=== PATIENT | male | born 1955 | race Caucasian/White ===

== ENCOUNTER 2018-11-25 14:23 | Emergency (ER) | payer MEDICAID ==
--- NOTE | 2018-11-25 14:55 | EDPHY ---
H & P Stated Complaint: Fall, L eye abrasia, intoxicated - Personal History Current Tetanus/Diphtheria Vaccine: Yes Current Tetanus Diphtheria and Acellular Pertussis (TDAP): Yes - Medical/Surgical History Hx Asthma: No Hx Chronic Respiratory Disease: No Hx Diabetes: No Hx Cardiac Disease: No Hx Renal Disease: No Hx Cirrhosis: No Hx Alcoholism: Yes Hx HIV/AIDS: No Hx Splenectomy or Spleen Trauma: No Other PMH: ETOH, headaches, Hep C - Social History Smoking Status: Current every day smoker Time Seen by Provider: 11/25/18 14:35 HPI/ROS: CHIEF COMPLAINT: "I hit my head" HISTORY OF PRESENT ILLNESS: 62-year-old homeless male arrives via ambulance, not a trauma activation, after witnesses observed him drinking alcohol and fall forward impacting his head. Positive brief loss of consciousness. No seizure activity. No incontinence. Patient states that this was not a syncopal episode. He has no complaints of pain or discomfort. He is asking for food and whether he can sleep. Tetanus is up-to-date per patient. REVIEW OF SYSTEMS: 10 systems reviewed and negative with the exception of the elements mentioned in the history of present illness PAST MEDICAL/SURGICAL HISTORY: no anticoagulant use, no relevant medical/ surgical history SOCIAL HISTORY: positive for self disclose alcohol use PHYSICAL EXAM 1) GENERAL: Well-developed, well-nourished, alert and oriented. Appears to be in no acute distress. Answering questions appropriately. 2) HEAD: Normocephalic, left frontal abrasion hematoma. 3) HEENT: Pupils equal, round, reactive to light bilaterally. Negative Horners. Nasopharynx, oropharynx, clear. No deformity or angulation of nose. No septal hematoma. No rhinorrhea. No oral trauma. Ears bilaterally with normal tympanic membranes. No hemotympanum. No fluid or blood in the external auditory canal. No raccoon eyes. No Mary sign. For dentition. no gross malocclusion, TMJ bilaterally nontender, facial bones nontender including the zygomatic arch, maxilla mandible. 4) NECK: No cervical collar is on. Posterior cervical spine is nontender, no stepoff, no effusion. Full range of motion which does not elicit any midline cervical spine pain, no posterior midline tenderness, no step-off. I recommended cervical collar however patient slaps my hand away when I attempt to place this. 5) LUNGS: Clear to auscultation bilaterally, no wheezes, no rhonchi, no retractions. No obvious signs of trauma. No chest wall pain. No flaring, no grunting. Moving symmetrically. No crepitus. 6) HEART: Regular rate and rhythm, 7) ABDOMEN: No guarding, no rebound, no focal tenderness, no peritoneal signs, no signs of trauma, no ecchymosis 8) MUSCULOSKELETAL: Moving all extremities, no focal areas of tenderness, no obvious trauma. 9) BACK: No midline vertebral tenderness, no fluctuance, no step-off, no obvious trauma, no visual or palpable abnormality. 10) SKIN: No laceration. DIFFERENTIAL DIAGNOSIS: Not necessarily in any particular order, my differential diagnosis includes, but is not limited to, concussion, skull fracture, intraparenchymal contusion, subarachnoid, subdural and epidural hematoma. The patient understands that this diagnosis is provisional and can never be 100% accurate. (Natalie Beauchamp) Constitutional: Initial Vital Signs Temperature (C) 36.6 C 11/25/18 14:26 Heart Rate 72 11/25/18 14:26 Respiratory Rate 18 11/25/18 14:26 Blood Pressure 122/80 H 11/25/18 14:26 O2 Sat (%) 99 11/25/18 14:26 O2 Delivery Mode Room Air Allergies/Adverse Reactions: No Known Allergies Allergy (Unverified 11/25/18 14:32) Home Medications: Medication Instructions Recorded NK [No Known Home Meds] 11/25/18 Medical Decision Making - Diagnostics Imaging Results: Images reviewed myself (Natalie Beauchamp) ED Course/Re-evaluation: 2:45 p.m.: Head CT ordered in this patient for trauma for the following indication: Loss of consciousness and intoxicated 3:30 p.m.: CT head and C-spine are negative for posttraumatic sequelae per Radiology interpretation. 3:35 p.m.: Re-evaluation. Patient is sleeping. Easily awoken. Requesting food and go to sleep. 5:00 p.m.: Care turned over to Dr. Annetta Rodriguez. Patient sleeping and sobering in the ER. (Natalie Beauchamp) The patient was evaluated and managed by the physician dam tender assistant. I have reviewed this chart and I agree with the findings and plan of care as documented , as indicated by my signature. I am the secondary supervising physician. Patient was discharged shortly after 5:00 p.m.. (Annetta Rodriguez) - Data Points Medications Given: Discontinued Medications Chlordiazepoxide (Librium 25 Mg Prepack#6) 1 btl TAKEHOME EDNOW ONE Stop: 11/25/18 16:12 Last Admin: 11/25/18 17:25 Dose: 1 btl Departure - Departure Disposition: Home, Routine, Self-Care Clinical Impression: Alcohol abuse, Head injury due to trauma Condition: Good Instructions: Chlordiazepoxide (By mouth), Head Injury (ED) Additional Instructions: ALTHOUGH THERE IS NO EVIDENCE OF SERIOUS HEAD INJURY AT THIS TIME, DELAYED SIGNS CAN APPEAR 24 TO 48 HOURS AFTER INJURY. PLEASE RETURN TO THE EMERGENCY DEPARTMENT (ED) IMMEDIATELY IF YOU HAVE INCREASED HEADACHE, PERSISTENT HEADACHE , VOMITING, WEAKNESS, CONFUSION OR VISUAL PROBLEMS. WE RECOMMEND THAT YOU DO NOT RESUME CONTACT SPORTS OR ACTIVITIES THAT TAKE COORDINATION OR BALANCE SUCH SKIING OR RIDING A BICYCLE UNTIL CLEARED TO DO SO BY YOUR DOCTOR OR BY A NEUROLOGIST. Referrals: [facility] Hours [Outside] - 1 day without fail
[2018-11-25] MEDS ORDERED: CHLORDIAZEPOXIDE 25MG PREPK#6 BTL TAKEHOME ONE (16:11)
[2018-11-25 17:28] VITALS: BP 135/78
== END 2018-11-25 17:28 | disposition home or self-care (01) ==
DX: S09.90XA Unspecified injury of head, initial encounter (principal); F10.10 Alcohol abuse, uncomplicated; Z59.0 Homelessness; W19.XXXA Unspecified fall, initial encounter; Y92.9 Unspecified place or not applicable; Y93.9 Activity, unspecified; Y99.9 Unspecified external cause status

== ENCOUNTER 2018-11-27 16:22 | Emergency (ER) | payer MEDICAID ==
--- NOTE | 2018-11-27 17:12 | EDPHY ---
General - History Smoking Status: Current every day smoker Time Seen by Provider: 11/27/18 17:12 Narrative: CLINICAL IMPRESSION: Alcohol intoxication ASSESSMENT/PLAN: Patient is a 62-year-old male with a significant medical history of ETOH abuse, hep C and frequent headaches who presents with acute alcohol intoxication. Patient is afebrile and not toxic appearing, he is in no acute distress on arrival. His abdomen was soft and nontender, no evidence of a surgical abdomen. Patient denied any physical complaints. Patient's record reviewed, seen 2 days prior for alcohol intoxication and head injury. He was observed for a period of time, has sobered appropriately and was able to tolerate orals. The differential diagnosis for this patient includes alcohol intoxication, alcohol abuse, alcohol withdrawal, other substance abuse or withdrawal, toxidrome or medication overdose, CVA, head trauma, hyponatremia, hypoglycemia or other electrolyte abnormality. The patient was previously placed on an [facility] hold by police, he was discharged back into police custody. Discussed indications for return to the emergency department as well as the importance of alcohol cessation. DIFFERENTIAL DX: Differential includes but is not limited to alcohol intoxication, drug intoxication, CVA, bacterial illness ED COURSE: 1742: Case discussed with Dr. Whitfield. 1800: Patient attempting to get out of bed, unstable gait. Nursing staff to assisted patient back in the bed. CHIEF COMPLAINT: Acute alcohol intoxication HPI: Patient is a 62-year-old male with a significant history of chronic alcohol abuse, hep C and frequent headaches who was brought in to the emergency department by police on an or cold. Per police report, the patient was found sleeping on the bike path, appeared intoxicated and was subsequently brought here for further evaluation. Patient reports to me chronic alcohol abuse, drink approximately 6 beers today. Patient endorses he has a fdc voucher through the [place] where he has been staying. He denies any physical complaints, denies any illicit drug use. PMH: Chronic headaches, hep C, alcohol abuse Family History: Noncontributory Social History: Alcohol abuse, denies illicit drug use REVIEW OF SYSTEMS: All other systems negative Constitutional: No fever, no chills, appetite change. Eyes: No discharge, vision change ENT: No sore throat, congestion, ear pain. Cardiovascular: No chest pain, no palpitations. Respiratory: No cough, no shortness of breath. Gastrointestinal: No abdominal pain, no vomiting, diarrhea. Genitourinary: No hematuria, dysuria, flank pain, pelvic pain Musculoskeletal: No back pain, joint swelling, joint pain, myalgias. Skin: No rashes, color change. Neurological: No headache, dizziness, weakness. PHYSICAL EXAM: General Appearance: Intoxicated. Elderly, malodorous and unkempt however not toxic-appearing. HENT: Normocephalic, abrasion noted superior lateral left brow, old-appearing without surrounding erythema or drainage. Bilateral external ears are normal. Bilateral tympanic membranes are normal with pearly flanagan reflex. Nares are clear, mucosa is pink. Oropharynx is clear, uvula is midline. There is no tonsillar enlargement or exudate. Poor dentition. Eyes: PERRLA, no acute vision change, swelling, discharge, pain or photosensitivity. Conjunctiva pink, no pallor or injection. Neck: Supple, nontender, no lymphadenopathy, no midline pain, FROM, no meningismus. Respiratory: There are no retractions, lungs are clear to auscultation. Cardiac: Regular rate and rhythm, no murmurs or gallops. Gastrointestinal: Abdomen is soft, nontender, bowel sounds normal, no masses/ hernia, no rigidity, guarding or focal peritoneal findings. Neurological: Alert and oriented x 3, CN 2-12 grossly intact, normal sensation and strength Skin: Warm, dry, no rashes, no nodules on palpation. Musculoskeletal: Extremities are symmetrical, full range of motion, no tenderness, deformity, swelling, or erythema. Psychiatric: Patient is oriented X 3, there is no agitation. MEDICAL DECISION MAKING: Patient was seen independently. Secondary supervising physician at time of evaluation was Dr. Whitfield. Diagnosis: Acute alcohol intoxication, alcohol abuse. New, requires workup Summary: See Assessment and Plan for summary of ED visit Clinical lab tests: Not applicable. Independent visualization of images, tracing, or specimens: Not applicable. Decision to obtain medical records or history from someone other than the patient: Yes, please report Review / Summarize previous medical records: Yes Discussed patient with another provider: Yes, Dr. Whitfield Patient Progress: Stable, discharge. (Candace Mcarthur) - Objective Vital Signs: Initial Vital Signs Temperature (C) 36.4 C 11/27/18 16:35 Heart Rate 76 11/27/18 16:35 Respiratory Rate 18 11/27/18 16:35 Blood Pressure 124/76 H 11/27/18 16:35 O2 Sat (%) 96 11/27/18 16:35 O2 Delivery Mode Room Air Allergies/Adverse Reactions: No Known Allergies Allergy (Unverified 11/27/18 16:49) Home Medications: Medication Instructions Recorded NK [No Known Home Meds] 11/25/18 Departure - Departure Disposition: Home, Routine, Self-Care Clinical Impression: Alcoholic intoxication Qualifiers: Complication of substance-induced condition: uncomplicated Qualified Code(s): F10.920 - Alcohol use, unspecified with intoxication, uncomplicated Condition: Good Instructions: Alcohol Intoxication (ED) Additional Instructions: Go directly to the [facility]. Referrals: [facility] 24 Hours [Outside] - As per Instructions
[2018-11-27 20:21] VITALS: BP 105/68
== END 2018-11-27 20:22 | disposition home or self-care (01) ==
LOC: EDUNIT#
DX: R51 Headache (principal); F10.920 Alcohol use, unspecified with intoxication, uncomplicated; B19.20 Unspecified viral hepatitis C without hepatic coma